=== PATIENT | male | born 1950 | race Two or more races ===

== ENCOUNTER 2023-07-23 08:45 | Inpatient (IN) | payer OTHER ==
[~2023-07-23] VITALS: Ht 177.8 cm; Wt 113.4 kg
[2023-07-23 12:01] LABS: HEMATOCRIT 42.8 % (39.0-48.0); HEMOGLOBIN 14.4 g/dL (13-16.00); MEAN CELL VOLUME 91.5 fL (80.0-100.00); MEAN CORPUSCULAR HEMOGLOBIN 30.7 pg (27.00-32.0); MEAN CORPUSCULAR HGB CONC 33.6 g/dl (32.0-36.0); PLATELET COUNT 185 K/uL (150-450); RED BLOOD COUNT 4.67 M/uL (4.00-6.00); RED CELL DISTRIBUTION WIDTH 15.3 % (11.5-14.5)
[2023-07-23 12:34] LABS: CALCIUM 9.4 mg/dL (8.5-10.1); CREATININE SERUM 0.74 mg/dL (0.70-1.30); GFR 104.26; POTASSIUM 4.44 mEq/L (3.5-5.1)
[2023-07-23 12:52] LABS: INR 1.06; PARTIAL THROMBOPLASTIN TIME 29.1 SECONDS (22.0-34.0); PROTHROMBIN TIME 11.1 SECONDS (9.0-11.5)
[2023-07-23] MEDS ORDERED: ENALAPRIL MALE2.5 MG PO (13:24)
[2023-07-23] MEDS ORDERED: PLAVIX75 MG PO (13:24)
[2023-07-23] MEDS ORDERED: ATORVASTATIN CA10 MG PO (13:24)
[2023-07-23] MEDS ORDERED: NAMENDA10 MG PO (13:25)
[2023-07-23] MEDS ORDERED: JANUVIA100 MG PO (13:25)
[2023-07-23] MEDS ORDERED: LANTUS SOL100 UNIT/1 (13:26)
[2023-07-23 14:02] LABS: URINE APPEARANCE Cloudy; URINE BILIRRUBIN Negative (NEGATIVE); URINE BLOOD Moderate; URINE COLOR Yellow; URINE LEUKOCYTE Small; URINE NITRATE Negative; URINE UROBILINOGEN 0.2 E.U./dl
[2023-07-23 14:03] LABS: URINE BACTERIA 1177.9 uL (0.0-1933); URINE EPITHELIAL CELLS 2.3 uL (0.0-38.8); URINE RBC 175.3 uL (0.0-20.8); URINE WBC 667.7 uL (0.0-23.2)
[2023-07-23 14:12] LABS: URINE GLUCOSE >=1000 MG/DL (NEGATIVE); URINE PROTEIN 100 (NEGATIVE)
[2023-07-23 14:15] LABS: URINE YEAST NEGATIVE /hpf
[2023-07-23 14:16] LABS: URINE EPITHELIAL CELLS 0-4 /HPF
[2023-07-25] MEDS ORDERED: ENOXAPARIN SODIUM 40 MG/0.4 ML SYRINGE SUBCUTANEO ONE ×2 (14:47→17:00)
[2023-07-25] MEDS ORDERED: CEFAZOLIN SODIUM 1,000 MG VIAL ONE ×2 (14:47→20:12)
[2023-07-25] MEDS ORDERED: CEFAZOLIN SODIUM 1,000 MG in 0.9 % SODIUM CHLORIDE 50 ML IV ONE (17:00)
[2023-07-25] MEDS ORDERED: HEMOSTATIC MATRIX 1 KIT KIT TOP ONE ×2 (17:07→17:15)
[2023-07-25] MEDS ORDERED: SURGIFLO APPLICATOR 1 EACH APPL TOP ONE ×2 (17:07→17:15)
[2023-07-25] MEDS ORDERED: ONDANSETRON HCL 2 MG/ML VIAL IV PRN (18:30)
[2023-07-25] MEDS ORDERED: RINGERS SOLUTION,LACTATED 1,000 ML IV SCH (18:30)
[2023-07-25] MEDS ORDERED: OxyCODONE HCL/APAP UD (PERCOCET) PO PRN (18:30)
[2023-07-25] MEDS ORDERED: DEXTROSE 50 % IN WATER 0.5 G/ML DISP.SYRIN IV PRN (18:45)
[2023-07-25] MEDS ORDERED: INSULIN LISPRO 1,000 UNIT/10 ML UNITS SUBCUTANEO PRN (18:45)
[2023-07-25] MEDS ORDERED: FAMOTIDINE/PF 20 MG/2 ML VIAL ONE (20:12)
[2023-07-25] MEDS ORDERED: CEFAZOLIN SODIUM 1,000 MG VIAL IV SCH (21:00)
[2023-07-25] MEDS ORDERED: FAMOTIDINE/PF 20 MG/2 ML VIAL IV SCH (21:00)
[2023-07-26] MEDS ORDERED: KETOROLAC TROMETHAMINE 30 MG VIAL IM SCH
[2023-07-26] MEDS ORDERED: GABAPENTIN 300 MG CAPSULE PO SCH (01:00)
[2023-07-26 06:20] LABS: HEMATOCRIT 38.1 % (39.0-48.0); HEMOGLOBIN 12.9 g/dL (13-16.00); MEAN CELL VOLUME 90.9 fL (80.0-100.00); MEAN CORPUSCULAR HEMOGLOBIN 30.8 pg (27.00-32.0); MEAN CORPUSCULAR HGB CONC 33.9 g/dl (32.0-36.0); PLATELET COUNT 161 K/uL (150-450); RED BLOOD COUNT 4.19 M/uL (4.00-6.00); RED CELL DISTRIBUTION WIDTH 15.1 % (11.5-14.5)
[2023-07-26 07:06] LABS: CALCIUM 8.5 mg/dL (8.5-10.1); CREATININE SERUM 0.69 mg/dL (0.70-1.30); GFR 113.03; PHOSPHOROUS 2.7 mg/dL (2.5-4.9); POTASSIUM 4.25 mEq/L (3.5-5.1)
[2023-07-26] MEDS ORDERED: ENALAPRIL MALEATE 2.5 MG TABLET PO SCH (09:00)
[2023-07-26] MEDS ORDERED: DOCUSATE SODIUM 100MG CAP PO SCH (09:00)
[2023-07-26] MEDS ORDERED: ENOXAPARIN SODIUM 40 MG/0.4 ML SYRINGE SUBCUTANEO SCH (17:00)
== END 2023-07-26 14:34 | DRG 708 ==
LOC: O/R 07-25 06:39 → SURH 07-25 08:45 → SURG 07-25 19:03
PROVIDERS: ADMIT Urology; ATTEND Urology
PROC: 8E0W4CZ Robotic Assisted Procedure of Trunk Region, Percutaneous Endoscopic Approach (ICD-10-PCS; 2023-07-25)
PROC: 0VT04ZZ Resection of Prostate, Percutaneous Endoscopic Approach (ICD-10-PCS; principal; 2023-07-25 13:30)
DX: N40.1 Benign prostatic hyperplasia with lower urinary tract symptoms (principal); R33.8 Other retention of urine; Z20.822 Contact with and (suspected) exposure to COVID-19
CPT/HCPCS: 55867; S2900

== ENCOUNTER 2023-08-03 12:49 | Emergency (ER) | payer OTHER ==
[~2023-08-03] VITALS: Ht 177.8 cm; Wt 110.2 kg
[~2023-08-03 12:49] MED LIST: ATORVASTATIN CA10 MG PO; ENALAPRIL MALE2.5 MG PO; JANUVIA100 MG PO; LANTUS SOL100 UNIT/1; NAMENDA10 MG PO; PLAVIX75 MG PO
== END 2023-08-03 14:28 | disposition home or self-care (01) ==
LOC: ER 12:49
DX: L76.34 Postprocedural seroma of skin and subcutaneous tissue following other procedure (principal); E11.9 Type 2 diabetes mellitus without complications; Z79.4 Long term (current) use of insulin; Z79.84 Long term (current) use of oral hypoglycemic drugs; I10 Essential (primary) hypertension

== ENCOUNTER 2023-08-09 15:40 | Inpatient (IN) | payer OTHER ==
[~2023-08-09] VITALS: Ht 177.8 cm; Wt 110.2 kg
--- NOTE | 2023-08-09 15:55 | NUR ---
PACIENTE ALERTA Y ORIENTADO X3 QUIEN LLEGA EN AMBULANCIA ACOMPANDO POR FELTON ESPOSA. ESPOSA DE PACIENTE REFIERE QUE FUE OPERADO DE PROSTATA EL 21 DE FEBRERO Y EN EL ELOISA DE [place] A SANGRAR POR LA URETRA.
[2023-08-09] MEDS ORDERED: 0.9 % SODIUM CHLORIDE 1,000 ML IV SCH (16:00)
--- NOTE | 2023-08-09 16:42 | NUR ---
PACIENTE EVALUADO POR DR SHYLA BARROSOIEN [place], SE ORIENTA PACIENTE SOBRE TRATAMIENTO Y VERBALIZA ENTENDER. SE REALIZA CRESENCIO DE MUESTRAS Y SE CANALIZA PACIENTE SHIELA ORDEN MEDICA Y BAJO MEDIDAS ASEPTICAS. SE LE HACE ENTTREGA DE ENVASE PARA UA Y UC.
[2023-08-09 17:15] LABS: HEMATOCRIT 36.5 % (39.0-48.0); HEMOGLOBIN 12.3 g/dL (13-16.00); MEAN CELL VOLUME 92.8 fL (80.0-100.00); MEAN CORPUSCULAR HEMOGLOBIN 31.2 pg (27.00-32.0); MEAN CORPUSCULAR HGB CONC 33.6 g/dl (32.0-36.0); PLATELET COUNT 407 K/uL (150-450); RED BLOOD COUNT 3.94 M/uL (4.00-6.00); RED CELL DISTRIBUTION WIDTH 15.3 % (11.5-14.5)
[2023-08-09 17:36] LABS: URINE APPEARANCE Turbid; URINE BILIRRUBIN Small (NEGATIVE); URINE BLOOD Trace; URINE COLOR Red; URINE GLUCOSE Negative (NEGATIVE); URINE LEUKOCYTE Large; URINE NITRATE Positive; URINE PROTEIN Trace (NEGATIVE); URINE UROBILINOGEN 0.2 E.U./dl
[2023-08-09 17:39] LABS: URINE BACTERIA 3918.9 uL (0.0-1933); URINE EPITHELIAL CELLS 6.6 uL (0.0-38.8); URINE WBC 2521.4 uL (0.0-23.2)
[2023-08-09 17:54] LABS: URINE RBC > 9821.2 uL (0.0-20.8)
[2023-08-09 18:38] LABS: ALBUMIN 2.7 gm/dL (3.4-5.0); BILIRUBIN TOTAL 0.46 mg/dL (0.3-1.2); CALCIUM 8.7 mg/dL (8.5-10.1); CREATININE SERUM 0.8 mg/dL (0.70-1.30); GFR 95.29; POTASSIUM 4.39 mEq/L (3.5-5.1); TOTAL PROTEIN 7.7 gm/dL (6.4-8.2)
[2023-08-09] MEDS ORDERED: KETOROLAC TROMETHAMINE 30 MG VIAL IV ONE (19:00)
[2023-08-09] MEDS ORDERED: CEFTRIAXONE SODIUM 2,000 MG in 0.9 % SODIUM CHLORIDE 100 ML IV SCH (19:10)
[2023-08-09] MEDS ORDERED: FAMOTIDINE/PF 20 MG/2 ML VIAL IV SCH (19:10)
[2023-08-09] MEDS ORDERED: KETOROLAC TROMETHAMINE 30 MG VIAL IM SCH (19:25)
[2023-08-09] MEDS ORDERED: ENALAPRIL MALEATE 2.5 MG TABLET PO SCH (19:29)
[2023-08-09] MEDS ORDERED: ATORVASTATIN CALCIUM 10 MG TABLET PO SCH (19:29)
[2023-08-09] MEDS ORDERED: DEXTROSE 50 % IN WATER 0.5 G/ML DISP.SYRIN IV PRN (19:30)
[2023-08-09] MEDS ORDERED: INSULIN LISPRO 1,000 UNIT/10 ML UNITS SUBCUTANEO PRN (19:30)
[2023-08-10] MEDS ORDERED: OXYBUTYNIN CHLORIDE 5 MG TABLET PO SCH (09:00)
[2023-08-11 07:50] LABS: HEMATOCRIT 33.1 % (39.0-48.0); HEMOGLOBIN 11.2 g/dL (13-16.00); MEAN CELL VOLUME 90.1 fL (80.0-100.00); MEAN CORPUSCULAR HEMOGLOBIN 30.6 pg (27.00-32.0); PLATELET COUNT 354 K/uL (150-450); RED BLOOD COUNT 3.67 M/uL (4.00-6.00); RED CELL DISTRIBUTION WIDTH 15.1 % (11.5-14.5)
[2023-08-12] MEDS ORDERED: FAMOtidine 20 MG TABLET PO SCH (17:00)
[2023-08-13 05:26] LABS: HEMATOCRIT 34.8 % (39.0-48.0); HEMOGLOBIN 11.9 g/dL (13-16.00); MEAN CELL VOLUME 91.9 fL (80.0-100.00); MEAN CORPUSCULAR HEMOGLOBIN 31.3 pg (27.00-32.0); MEAN CORPUSCULAR HGB CONC 34.1 g/dl (32.0-36.0); PLATELET COUNT 356 K/uL (150-450); RED BLOOD COUNT 3.79 M/uL (4.00-6.00); RED CELL DISTRIBUTION WIDTH 14.7 % (11.5-14.5)
[2023-08-13] MEDS ORDERED: levoFLOXacin IN DEXTROSE 5 % 5 MG/ML PIGGYBAG IV SCH (17:00)
== END 2023-08-15 17:48 | disposition home or self-care (01) | DRG 690 ==
LOC: ER 15:40 → MEDJ 19:36 → SEC-K 19:36 → MEDJ 21:31
PROVIDERS: General Practice; Internal Medicine; Urology; ADMIT Internal Medicine; ATTEND Internal Medicine
DX: N39.0 Urinary tract infection, site not specified (principal); R31.0 Gross hematuria; I25.10 Atherosclerotic heart disease of native coronary artery without angina pectoris; I11.9 Hypertensive heart disease without heart failure; E11.9 Type 2 diabetes mellitus without complications; Z79.4 Long term (current) use of insulin; F03.90 Unspecified dementia, unspecified severity, without behavioral disturbance, psychotic disturbance, mood disturbance, and anxiety; B95.2 Enterococcus as the cause of diseases classified elsewhere; B96.89 Other specified bacterial agents as the cause of diseases classified elsewhere